=== PATIENT | male | born 1980 | race Caucasian/White ===

== ENCOUNTER 2020-05-01 10:59 | Emergency (ER) | payer OTHER ==
[~2020-05-01] VITALS: Ht 193 cm; Wt 181.4 kg
[2020-05-01 11:00] VITALS: Ht 193 cm; Wt 181.4 kg
[2020-05-01 14:45] VITALS: BP 150/97
== END 2020-05-01 14:45 | disposition home or self-care (01) ==
LOC: ED
DX: S00.83XA Contusion of other part of head, initial encounter (principal); S50.11XA Contusion of right forearm, initial encounter; Y04.8XXA Assault by other bodily force, initial encounter; Y93.89 Activity, other specified; Y92.89 Other specified places as the place of occurrence of the external cause; Y99.8 Other external cause status